=== PATIENT | female | born 2000 | race Caucasian/White ===

== ENCOUNTER 2020-08-18 08:35 | Emergency (ER) | payer MEDICAID ==
[~2020-08-18] VITALS: Ht 170.2 cm; Wt 110.9 kg
--- NOTE | 2020-08-18 09:21 | NUR ---
report to [email or web address] [email or web address]. as
[2020-08-18 10:08] VITALS: BP 118/77
== END 2020-08-18 10:11 | disposition home or self-care (01) ==
LOC: ED 09:11
DX: J06.9 Acute upper respiratory infection, unspecified (principal); Z20.828 Contact with and (suspected) exposure to other viral communicable diseases; J45.909 Unspecified asthma, uncomplicated
CPT/HCPCS: 71045; 87635; 93005; 99285